=== PATIENT | female | born 2000 | race Caucasian/White ===

== ENCOUNTER 2020-07-10 15:09 | Outpatient (REF) | payer BC, SELFPAY ==
--- NOTE | 2020-07-10 09:30 | PAPFT_PTH ---
PATIENT: Aileen Vasquez [facility] U#:[id number] AGE/SX: 20/F ROOM: RE07/10/[address]: Cathy Wynn : 2000 BED: DIS: 07/10/2020 SPEC #: [id number] RECD: 07/10/20 18:12 STATUS: IBRAHIMA REMax #: [id number] DINAH: 07/10/20 09:[address]: Cathy Wynn DEPT: [facility] Cytology RECD BY: Kizzy Morris Tissues: 1 - CX/ENDOCX FOR PAP SMEARS Procedures: PAP THIN PREP/[facility] Screening HPV DNA PROBE Comments: [id number] (CHLAMYDIA/GC) (CLARE)
[2020-07-11 15:20] LABS: Chlamydia Result Negative (Negative); GC Result Negative (Negative)
== END 2020-07-10 15:10 | disposition home or self-care (01) ==
LOC: NCHCN 15:09
PROVIDERS: PCP Family Medicine; Visit Provider Family Medicine
DX: Z11.3 Encounter for screening for infections with a predominantly sexual mode of transmission (principal); Z12.4 Encounter for screening for malignant neoplasm of cervix; Z01.419 Encounter for gynecological examination (general) (routine) without abnormal findings; R87.610 Atypical squamous cells of undetermined significance on cytologic smear of cervix (ASC-US); Z11.51 Encounter for screening for human papillomavirus (HPV)
CPT/HCPCS: 87491; 87591; 88142; 87624

== ENCOUNTER 2022-08-14 17:56 | Outpatient (REF) | payer BC, SELFPAY ==
[2022-08-14 21:45] LABS: Abs Immature Grans 0.02 10^3/uL (0.0-0.06); Absolute Basophil Count 0.04 10^3/uL (0.0-0.2); Absolute Eosinophil Count 0.03 10^3/uL (0.0-0.7); Absolute Lymphocyte Count 1.85 10^3/uL (1.2-3.4); Absolute Monocyte Count 0.45 10^3/uL (0.1-0.8); Absolute Neutrophil Count 4.37 10^3/uL (1.2-6.7); Basophils % 0.6; Eosinophils % 0.4; HCT 41.1 % (36.0-46.0); Immature Grans % 0.3; Lymphocytes % 27.4; MCH 30.7 pg (27.0-33.0); MCHC 34.1 % (32.0-36.0); MCV 90 fL (80-95); MPV 9.8 fL (8.0-11.0); Monocytes % 6.7; Neutrophils % 64.6; Platelet Count 329 10^3/uL (130-400); RBC 4.56 10^6/uL (3.93-5.22); RDW 12.1 % (11.7-14.6); RDW-SD 39.7 fL; WBC 6.76 10^3/uL (4.4-10.8)
[2022-08-14 21:50] LABS: ESR 8 mm/hr (0-20)
[2022-08-14 22:02] LABS: Hemoglobin A1C 5.1 % (<5.7)
[2022-08-14 22:14] LABS: ALT 27 U/L (14-59); AST 20 U/L (15-37); Albumin 4.1 g/dL (3.4-5.0); Alkaline Phosphatase 65 U/L (46-116); Anion Gap 10.4 mmol/L (3-11); BUN 8 mg/dL (7-18); Bilirubin, Total 0.3 mg/dL (0.2-1.0); C-Reactive Protein 0.25 mg/dL (0.0-0.3); CO2 26.6 mmol/L (21.0-32.0); CREATININE 0.9 mg/dL (0.55-1.02); Calcium 9.1 mg/dL (8.5-10.1); Chloride 104 mmol/L (98-107); Estimated GFR 92.12 (mL/min/1.73m2); Glucose 90 mg/dL (74-106); Potassium 3.8 mmol/L (3.5-5.1); Sodium 141 mmol/L (136-145); TSH (W/Ref FT4) 1.46 uIU/mL (0.36-3.74)
== END 2022-08-14 17:57 | disposition home or self-care (01) ==
LOC: NCHCN 17:56
PROVIDERS: PCP Family Medicine; Visit Provider Physician Assistant
DX: R20.0 Anesthesia of skin (principal); R51.9 Headache, unspecified; R41.3 Other amnesia; R59.0 Localized enlarged lymph nodes; Z13.1 Encounter for screening for diabetes mellitus
CPT/HCPCS: 80053; 85652; 83036; 84443; 85025; 86140

== ENCOUNTER 2022-08-29 16:37 | Outpatient (REF) | payer BC, SELFPAY ==
--- NOTE | 2022-08-29 16:00 | PAPFT_PTH ---
PATIENT: Aileen Vasquez LOC: [facility]#:[id number] AGE/SX: 22/ ROOM: RE08/29/[address]: Aster Carter : 2000 BED: DIS: 08/29/2022 SPEC #: [id number] RECD: 08/30/22 12:54 STATUS: IBRAHIMA REQ #: [id number] DINAH: 08/29/22 16:[address]: Aster Carter DEPT: [facility] Cytology RECD BY: Kizzy Morris ENTERED: 08/30/22 12:54 SP TYPE: PAPFT OTHR DR: Cathy Wynn Tissues: 1 - CX/ENDOCX FOR PAP SMEARS Procedures: PAP THIN PREP/[facility] Screening Comments: [id number] (CHLAMYDIA/GC)
[2022-09-02 15:34] LABS: Chlamydia Result Negative (Negative); GC Result Negative (Negative)
== END 2022-08-29 16:38 | disposition home or self-care (01) ==
LOC: NCHCN 16:37
PROVIDERS: PCP Family Medicine; Visit Provider Physician Assistant
DX: Z11.3 Encounter for screening for infections with a predominantly sexual mode of transmission; Z12.4 Encounter for screening for malignant neoplasm of cervix
CPT/HCPCS: 87491; 87591; 88142

== ENCOUNTER 2025-02-09 19:51 | Outpatient (REF) | payer BC, SELFPAY ==
[2025-02-09 21:47] LABS: Abs Immature Grans 0.01 10^3/uL (0.0-0.06); HCT 40.0 % (36.0-46.0); HGB 14.2 g/dL (11.2-15.7); Immature Grans % 0.2 %; MCH 31.6 pg (27.0-33.0); MCHC 35.5 % (32.0-36.0); MCV 89 fL (80-95); MPV 9.8 fL (8.0-11.0); Platelet Count 272 10^3/uL (130-400); RBC 4.49 10^6/uL (3.93-5.22); RDW 11.9 % (11.7-14.6); RDW-SD 38.4 fL; WBC 5.19 10^3/uL (4.4-10.8)
[2025-02-09 22:05] LABS: TSH (W/Ref FT4) 2.42 uIU/mL (0.36-3.74)
[2025-02-10 19:40] LABS: HIV-1/2 Ag & Ab Screen Negative (Negative)
[2025-02-10 19:43] LABS: Hepatitis C Ab w Rflx HCV PCR Negative (Negative)
[2025-02-11 10:37] LABS: Syphilis Serology (RPR) Negative (Negative)
[2025-02-11 13:27] LABS: Chlamydia Result Negative (Negative); GC Result Negative (Negative)
== END 2025-02-09 19:52 | disposition home or self-care (01) ==
LOC: NCHCN 19:51
PROVIDERS: PCP Family Medicine; Visit Provider Nurse Practitioner Family
DX: Z01.419 Encounter for gynecological examination (general) (routine) without abnormal findings (principal); Z11.59 Encounter for screening for other viral diseases; R22.32 Localized swelling, mass and lump, left upper limb; Z12.4 Encounter for screening for malignant neoplasm of cervix
CPT/HCPCS: 86803; 87389; 87491; 87591; 88142; 84443; 85025; 86592